=== PATIENT | male | born 1960 | race Caucasian/White ===

== ENCOUNTER 2024-05-02 09:34 | Emergency (ER) | payer OTHER, SELFPAY ==
[2024-05-02] VITALS (9 sets, daily range): BP systolic 109–180; BP diastolic 83–107; PULSE 92–131; RESP 16–27; TEMP 36.8; O2SAT 92–97; BMI 46.4
--- NOTE | 2024-05-02 09:37 | ECG_ITS ---
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 Measurements Intervals [place] Rate: 128 P: 0 [place]: 0 QRS: 93 QRSD: 101 T: -14 QT: 287 QTc: 419 Interpretive Statements ATRIAL FIBRILLATION WITH RAPID VENTRICULAR RESPONSE BORDERLINE RIGHT AXIS DEVIATION [QRS AXIS > 90] MODERATE ST DEPRESSION [0.05+ mV ST DEPRESSION] ABNORMAL QRS-T ANGLE [QRS-T AXIS DIFFERENCE > 60] Compared to ECG 11/28/2018 10:14:42 ST (T wave) deviation now present Electronically Signed On 05-02-2024 12:39:20 CDT by Arden Chaney M.D. [id number]
--- NOTE | 2024-05-02 09:43 | XRR_ITS ---
PROCEDURE INFORMATION: Exam: XR Chest Exam date and time: 05/02/2024 9:47 AM Age: 63 years old Clinical indication: Shortness of breath; Patient HX: High heart rate; Additional info: SOB TECHNIQUE: Imaging protocol: Radiologic exam of the chest. Views: 1 view. COMPARISON: CR XR chest 1V [id number] 11/29/2018 7:12 AM FINDINGS: Limitations: Image degraded by motion, breathing unsharpness. Lungs: Shallow inspiration with low lung volumes. Bibasilar atelectasis and/or infiltrate increased compared to prior study. Mild prominence pulmonary vasculature. Pleural spaces: No large or obvious pneumothorax nor pleural effusion seen. Heart/Mediastinum: Heart size remains enlarged. Vasculature: Atherosclerotic disease aorta. Bones/joints: Degenerative changes spine. Other findings: Patient appears rotated to the right. XR/XR chest 1V portable [id number] IMPRESSION: Shallow inspiration with low lung volumes. Bibasilar atelectasis and/or infiltrate increased compared to prior study. Mild prominence pulmonary vasculature.
--- NOTE | 2024-05-02 09:44 | ED_ITS ---
HPI - Arrhythmia/Palpitations 2 General: Chief Complaint: Arrhythmia/Palpitations Stated Complaint: [facility], high hr and bp Time Seen by Provider: 05/02/24 09:42 Source: patient and family Mode of arrival: ambulatory Limitations: no limitations History of Present Illness: This patient was referred to the emergency department from the local [place] [facility]. He apparently was there and getting his usual 6-month checkup and they noted he was more hypertensive than usual and also had a more fast heart rate than usual. He does state that he has been a bit more short of breath than usual. He denies any ongoing chest pain. He denies any fevers or chills or cough. He states he knows he has an irregular heartbeat but does not remember if he was told he had atrial fibs or what other condition. He does take blood thinners. Does have a history of COPD. He does continue to smoke cigarettes as well as drink alcohol on a regular basis. When I inquired whether he had been seen by a reproduction production manager he said he did see a reproduction production manager to talk to him about shocking him back into regular rate but he did not want to do that. No other hospitalizations. No other change in his usual state of health. MD complaint: rapid heart beat and atrial fibrillation Arrhythmia history: on anti-coagulants Associated symptoms: Deny anxiety, nausea, pre-syncope, syncope or vomiting Review of Systems 2 Const: Denies: fever(s) or chills Eyes: Denies: change in vision ENMT: Denies: odynophagia, nasal discharge or nasal congestion Card: Reports: irregular heart rhythm; Denies: chest pain, syncope or pre-syncope Resp: Reports: dyspnea and non-productive cough; Denies: wheezing or stridor GI: Denies: abdominal pain, nausea, vomiting or diarrhea Musc: Denies: neck pain, back pain, extremity pain or extremity swelling Skin/Breast: Denies: rash or pruritus Neuro: Denies: headache(s), numbness in extremities or weakness in extremities Psych: Denies: anxiety or depression Endo: Denies: polyuria or polydipsia Physical Exam 2 Narrative: EXAM NARRATIVE: Patient is alert speaks in complete sentences without dyspnea in no acute distress. Const: COMMON NORMALS: no acute distress, patient oriented x3 and alert G ENERAL APPEARANCE: cooperative and comfortable NUTRITIONAL APPEARANCE: o verweight HENMT: COMMON NORMALS: normocephalic, Normal nasal mucous membranes and turbinates present, moist oral mucous membranes and oropharynx normal HEAD & SCALP: normocephalic NOSE: Normal nasal mucous membranes and turbinates present Eye: COMMON NORMALS: Equal, round and reactive pupils present, EOMs intact bilaterally and conjunctivae normal CONJUNCTIVA: Yes conjunctivae normal P UPIL: Yes Equal, round and reactive pupils present Neck/C-Spine: COMMON NORMALS: full ROM, no lymphadenopathy, supple and no JVD Chest: COMMONS NORMALS: normal inspection of the chest and normal palpation of entire chest wall Resp: COMMON NORMALS: normal respiratory effort, No retractions, No use of accessory muscles and clear to auscultation bilaterally EFFORT & INSPECTION: Yes able to speak in complete sentences AUSCULTATION: clear to auscultation bilaterally Cardio: COMMON NORMALS: no JVD, No murmurs present (Cardio) and Peripheral pulses 2+ throughout RHYTHM: abnormal rhythm irregularly irregular P ERIPHERAL PULSES: Peripheral pulses 2+ throughout GI: COMMON NORMALS: Soft to palpation and non-tender PALPATION: Yes Soft to palpation and Yes Hernia present umbilical : COMMON NORMALS: Yes no CVA tenderness BLADDER/KIDNEY EXAM: Yes no CVA tenderness Back/Pelvis: COMMON NORMALS: no CVA tenderness, thoracic and lumbar spine normal to inspection, no thoracic nor lumbar tenderness, thoraco-lumbar ROM normal and straight leg raise negative bilaterally Extremity: COMMON NORMALS: normal to inspection, full ROM, capillary refill normal, no calf tenderness and no pedal edema Neuro: COMMON NORMALS: patient oriented x3, moves all extremities, no focal motor deficits and no sensory deficits noted SENSORIUM/ORIENTATION: Yes alert Psych: COMMON NORMALS: mental status grossly normal Skin: COMMON NORMALS: no rashes or lesions noted, no wounds and turgor normal GENERAL SKIN EXAM: no rashes or lesions noted and turgor normal Course 2 Reevaluation(s): Reevaluation #1: Patient states he feels much better. His heart rate is more controlled with the predominant rhythm around the 100. He states he does not have any sensation of palpitations chest pain shortness of breath etc. We discussed likely pathology that is occurring and that that he is probably getting a rapid heart rate which makes his filling time diminished in subjectively feeling more short of breath and less energy. We probably will recommend that he should increase his diltiazem dose to a total of 480 a day and more efficiently dose at and to 40 in the morning and 240 in the evening. We have a second troponin pending to ensure that there is no significant delta indicating any likely risk of ACS. Likely his initial troponin was slightly elevated due to his rapid ventricular response. Also discussed using oral [id number] magnesium. Time: 11:33 Vital Signs: Vital signs: Vital Signs Temperature 98.3 F 05/02/24 09:36 Pulse Rate 102 H 05/02/24 12:00 Respiratory Rate 24 H 05/02/24 11:30 Blood Pressure 136/104 05/02/24 12:00 Pulse Oximetry 94 05/02/24 12:00 Oxygen Delivery Me thod Room Air 05/02/24 09:36 MDM - Arrhythmia/Palpitations Medical Decision Making Patient was referred to the emergency department because of elevated blood pressure and elevated heart rate. He has a history of chronic atrial fibrillation on anticoagulation therapy. Previously known to have this disorder. He has also regular alcohol and tobacco user. He apparently has been referred for cardioversion in the past but declined that procedure. On presentation he was noted to be tachycardic with a rapid ventricular response in the 120s and 130s as well as had an elevated systolic blood pressure. Other clinical examination was unremarkable for any acute process. Workup included evaluation for ACS, electrolyte abnormalities, other potential causes for his current clinical picture. At the same time he was given additional dose of diltiazem as well as magnesium infusion. Heart rate was controlled with a ventricular response around 100 with significant subjective improvement. Serial troponins revealed no significant change the initial elevation is likely related to his sustained rapid ventricular response. No evidence of acute failure or other concerning findings at this time. We have made some medication changes and that we have increased the diltiazem and divided the dose and added magnesium to her regimen. We discussed expected course and the need to reduce alcohol and tobacco intake. He is stable at this time and desires to be discharged from the emergency department. Lab Data I reviewed the patient's lab results. 05/02/24 09:44 05/02/24 09:44 Radiology Impressions Chest X-Ray 05/02/24 09:43 IMPRESSION: Shallow inspiration with low lung volumes. Bibasilar atelectasis and/or infiltrate increased compared to prior study. Mild prominence pulmonary vasculature. Laboratory Results WBC 8.88 10^3/uL (3.29-11.43) 05/02/24 09:44 RBC 4.57 10^6/uL (3.85-5.65) 05/02/24 09:44 Hgb 14.60 g/dL (11.27-16.99) 05/02/24 09:44 Hct 44.6 % (37-53) 05/02/24 09:44 MCV 97.6 fl (82-101) 05/02/24 09:44 MCH 31.9 pg (27-33) 05/02/24 09:44 MCHC 32.7 g/dL (30-55) 05/02/24 09:44 RDW 15.9 % (12.1-15.1) H 05/02/24 09:44 Plt Count 211 10^3/cmm (157-399) 05/02/24 09:44 MPV 10.0 fL (7.4-10.4) 05/02/24 09:44 Neut % (Auto) 65.6 % 05/02/24 09:44 Lymph % (Auto) 20.3 % 05/02/24 09:44 Menard % (Auto) 10.1 % 05/02/24 09:44 Eos % (Auto) 2.3 % 05/02/24 09:44 Baso % (Auto) 0.9 % 05/02/24 09:44 Neut # (Auto) 5.83 10^3/uL (1.8-7.7) 05/02/24 09:44 Lymph # (Auto) 1.8 10^3/uL (0.8-4.8) 05/02/24 09:44 Menard # (Auto) 0.9 10^3/uL (0.2-0.9) 05/02/24 09:44 Eos # (Auto) 0.2 10^3/uL (0.0-0.8) 05/02/24 09:44 Baso # (Auto) 0.1 10^3/uL (0.0-0.1) 05/02/24 09:44 Nucleated RBC % (auto) 0 % 05/02/24 09:44 Nucleated RBCs # 0.0 /100WBC 05/02/24 09:44 Sodium 139 mmol/L (136-145) 05/02/24 09:44 Potassium 4.2 mmol/L (3.5-5.1) 05/02/24 09:44 Chloride 101 mmol/L (98-107) 05/02/24 09:44 Carbon Dioxide 22 mmol/L (22-29) 05/02/24 09:44 Anion Gap 20.2 (5-19) H 05/02/24 09:44 BUN 15 mg/dL (8-23) 05/02/24 09:44 Creatinine 1.2 mg/dL (0.7-1.2) 05/02/24 09:44 GFR Calculation 60.8 mL/min (90-130) L 05/02/24 09:44 Glucose 134 mg/dL (65-115) H 05/02/24 09:44 Calculated Osmolality 291 mOsm/kg (285-295) 05/02/24 09:44 Calcium 9.1 mg/dL (8.5-10.5) 05/02/24 09:44 Total Bilirubin 0.4 mg/dL (0.15-1.2) 05/02/24 09:44 AST 17 U/L (0-40) 05/02/24 09:44 ALT 15 U/L (0-41) 05/02/24 09:44 Alkaline Phosphatase 92 U/L (40-130) 05/02/24 09:44 Troponin T Baseline 18 ng/L (0-15) H 05/02/24 09:44 Troponin T 120 Minute 14.71 ng/L (0-15) 05/02/24 12:02 Delta Troponin T -3.29 ABS# (0-10) L 05/02/24 12:02 Total Protein 8.1 g/dL (6.6-8.7) 05/02/24 09:44 Albumin 4.4 g/dL (3.5-5.2) 05/02/24 09:44 Globulin 3.7 g/dL (1.3-4.6) 05/02/24 09:44 All radiology interpretation(s) finalized by discharge EKG Data EKG 1: I personally reviewed and interpreted this EKG as follows: Interpretation: Review of resting EKG reveals ventricular rate of 120 bpm. Consistent with atrial fibrillation with a rapid ventricular response. QRS duration is normal. Corrected QT interval is normal. He has nonspecific ST-T wave changes noted in the lateral precordial leads. Other EKG comments: Chest X-Ray 05/02/24 09:43 IMPRESSION: Shallow inspiration with low lung volumes. Bibasilar atelectasis and/or infiltrate increased compared to prior study. Mild prominence pulmonary vasculature. EKG 2: I personally reviewed and interpreted this EKG as follows: Interpretation: Second EKG this visit reveals a controlled ventricular response at 105 bpm. Consistent with atrial fibrillation. QRS duration is normal. Corrected QT intervals normal. Nonspecific ST-T wave changes still noted laterally but otherwise no other acute changes. Other EKG comments: Chest X-Ray 05/02/24 09:43 IMPRESSION: Shallow inspiration with low lung volumes. Bibasilar atelectasis and/or infiltrate increased compared to prior study. Mild prominence pulmonary vasculature. Discharge Plan Discharge Patient Disposition: Home Clinical Impression: Atrial fibrillation Qualifiers: Atrial fibrillation type: unspecified chronic Qualified Code(s): I48.20 - Chronic atrial fibrillation, unspecified Condition: Stable Prescriptions: New DILT-XR 240 mg capsule,ext.rel 24h degradable 240 mg PO BID Qty: 60 0RF Discontinued diltiazem HCl 360 mg Capsule,Extended Release 24 Hr 360 mg PO QAM No Action Wixela Inhub 250-50 mcg/dose Blister With Device 1 inh INHALATION BID furosemide 20 mg Tablet 20 mg PO QAM albuterol sulfate 90 mcg/actuation Hfa Aerosol Inhaler 2 puff INHALATION Q4H PRN (Reason: COPD) lisinopril 40 mg Tablet 20 mg PO DAILY rosuvastatin 40 mg Tablet 20 mg PO QPM cholecalciferol (vitamin D3) 50 mcg (2,000 unit) Tablet 50 mcg PO DAILY rivaroxaban 20 mg Tablet 20 mg PO DAILY Rx Instructions: must administer with evening meal tiotropium bromide 2.5 mcg/actuation Mist 2 puff INHALATION DAILY potassium chloride 20 mEq Tablet Extended Release 20 meq PO DAILY Discharge Orders: Discharge ED (Routine); Ordered 05/02/24 Ordered By: Diego Dutta Referrals: Nasrin Marin MD [Primary Care Provider] - Discharge Diet: Usual diet and Low Salt Discharge Activity: Increase activity as tolerated Patient Instructions: Opioid Safety, Pain Management Activity Restrictions/Additional Instructions: As we discussed many of your symptoms are likely related to when your heart rate goes too fast. We have made changes in your diltiazem and that we have increased your dose and divided your dosing to 240 mg in the morning and 240 mg at night. You should also get [id number] magnesium and take 400 mg daily. [facility]. If it anytime you have new or worsening symptoms you are welcome to return to the emergency department for reevaluation. Coding Level of Care Code ED Prime Minister for Lyudmila Manrique
[2024-05-02 09:50] LABS: Basophils # 0.1 10^3/uL (0.0-0.1); Basophils % 0.9 %; Eosinophils # 0.2 10^3/uL (0.0-0.8); Eosinophils % 2.3 %; Hematocrit 44.6 % (37-53); Lymphocytes # 1.8 10^3/uL (0.8-4.8); Lymphocytes % 20.3 %; Mean Corpuscular HGB Conc 32.7 g/dL (30-55); Mean Corpuscular Hemoglobin 31.9 pg (27-33); Mean Corpuscular Volume 97.6 fl (82-101); Monocytes # 0.9 10^3/uL (0.2-0.9); Monocytes % 10.1 %; Neutrophils # 5.83 10^3/uL (1.8-7.7); Neutrophils % 65.6 %; Nucleated Red Blood Cells % 0 %; Platelet Count 211 10^3/cmm (157-399); Red Blood Count 4.57 10^6/uL (3.85-5.65); Red Cell Distribution Width 15.9 % (12.1-15.1); White Blood Count 8.88 10^3/uL (3.29-11.43)
[2024-05-02] MEDS: dilTIAZem 5 mg/mL SDV 5 mL 20 MG IVP (09:50)
[2024-05-02] MEDS: magnesium sulfate premix 2 GM/50 ML PIGGYBACK IV (09:51)
--- NOTE | 2024-05-02 09:55 | PC.PHAR ---
Addendum entered by Nadine Brennan 05/02/24 10:25: [facility] SENT MED LIST WITH PT FOR OUR INFORMATION. Original Note: PT IS [facility] L[facility] 05/02/24 9:55AM
[2024-05-02 10:14] LABS: Alanine Aminotransferase 15 U/L (0-41); Albumin Level 4.4 g/dL (3.5-5.2); Alkaline Phosphatase 92 U/L (40-130); Aspartate Amino Transferase 17 U/L (0-40); Blood Urea Nitrogen 15 mg/dL (8-23); Calcium 9.1 mg/dL (8.5-10.5); Carbon Dioxide 22 mmol/L (22-29); Chloride 101 mmol/L (98-107); Creatinine Clr Calc Pharmacy 97.0538; Globulin 3.7 g/dL (1.3-4.6); Glomerular Filtration Rate 60.8 mL/min (90-130); Glucose 134 mg/dL (65-115); Osmolality Calculated 291 mOsm/kg (285-295); Sodium 139 mmol/L (136-145); Total Bilirubin 0.4 mg/dL (0.15-1.2); Total Protein 8.1 g/dL (6.6-8.7)
[2024-05-02 10:15] LABS: Anion Gap 20.2 (5-19); Potassium 4.2 mmol/L (3.5-5.1)
[2024-05-02 10:16] LABS: Troponin(5th) Baseline 18 ng/L (0-15)
--- NOTE | 2024-05-02 11:48 | ECG_ITS ---
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 Measurements Intervals [place] Rate: 105 P: 0 [place]: 0 QRS: 65 QRSD: 91 T: 46 QT: 307 QTc: 406 Interpretive Statements ATRIAL FIBRILLATION WITH RAPID VENTRICULAR RESPONSE MODERATE ST DEPRESSION [0.05+ mV ST DEPRESSION] Compared to ECG 11/28/2018 10:14:42 ST (T wave) deviation now present Electronically Signed On 05-02-2024 12:39:48 CDT by Arden Chaney M.D. [id number]
[2024-05-02 12:24] LABS: Troponin 5 2HR 14.71 ng/L (0-15)
[2024-05-02 12:27] LABS: Troponin 5 2HR Delta -3.29 ABS# (0-10)
== END 2024-05-02 12:56 | disposition home or self-care (01) ==
PROVIDERS: Emergency Provider Emergency Medicine; PCP Family Medicine
DX: I48.20 Chronic atrial fibrillation, unspecified (principal); J44.9 Chronic obstructive pulmonary disease, unspecified; F17.210 Nicotine dependence, cigarettes, uncomplicated; Z79.01 Long term (current) use of anticoagulants
CPT/HCPCS: 36415; 71045; 80053; 84484; 85025; 93005; 96365; 96375; 99285; J3475; J3490

== ENCOUNTER 2024-08-02 06:00 | Outpatient (CLI) | payer OTHER, SELFPAY | END 2024-08-02 06:01 | LOC: RAD 08-03 07:23 | PROVIDERS: PCP Family Medicine; Visit Provider Internal Medicine Cardiovascular Disease | DX: R06.02 Shortness of breath (principal); R94.31 Abnormal electrocardiogram [ECG] [EKG]; I48.20 Chronic atrial fibrillation, unspecified; I11.0 Hypertensive heart disease with heart failure; I50.9 Heart failure, unspecified; J43.9 Emphysema, unspecified; E66.01 Morbid (severe) obesity due to excess calories; F17.200 Nicotine dependence, unspecified, uncomplicated; Z68.42 Body mass index [BMI] 45.0-49.9, adult | CPT/HCPCS: 36415; 80048; 83880; 99205 ==

== ENCOUNTER 2024-09-06 11:59 | Outpatient (CLI) | payer OTHER, SELFPAY ==
--- NOTE | 2024-09-06 | USCV_ITS ---
Germain Turpin Age: 64 Gender: M : 1960 Exam Date: 09/06/2024 12:33 Ordering Phys: Mundo Blakely MD ([email or web address]) Technologist: [place] [facility] [place]: CHF/A FIB BP: 146 / 84 HR: 103 Rhythm: Sinus Technical Quality: Very technically difficult study MEASUREMENTS (Male / Female) Normal Values DOPPLER MV Peak Velocity 130.0 cm/s MV Area PHT 4.3 cm squared Mitral E to A Ratio 93.0 TV Peak E Velocity 101.0 cm/s PV Peak Velocity 107.0 cm/s RV Ejection Time 0.3 s FINDINGS Left Ventricle Possibly normal LV size and ejection fraction Segmental wall motion analysis difficult Small echo-free space anteriorly suggesting pericardial fat pad versus small pericardial effusion Right Ventricle Could not be visualized well Right Atrium Could not be visualized Left Atrium Could not be visualized Mitral Valve Could not be visualized well Aortic Valve Could not be visualized Tricuspid Valve Could not be visualized Pulmonic Valve Could not be visualized Pericardium Small echo-free space anteriorly suggesting pericardial fat pad versus small pericardial effusion Aorta Aorta not well visualized. IVC Inferior vena cava not visualized. CONCLUSIONS Possibly normal LV size and ejection fraction Segmental wall motion analysis difficult Small echo-free space anteriorly suggesting pericardial fat pad versus small pericardial effusion. Technically very difficult study because of poor ultrasonic windows Dr Mundo Blakely MD [facility] (Electronically Signed) Final Date: 10 September 2024 21:54 S
== END 2024-09-06 12:00 | disposition home or self-care (01) ==
LOC: RAD 12:00
PROVIDERS: PCP Family Medicine; Visit Provider Internal Medicine Cardiovascular Disease
DX: R06.09 Other forms of dyspnea (principal); E65 Localized adiposity
CPT/HCPCS: 93306